=== PATIENT | female | born 1955 | race American Indian/Alaskan Native ===

== ENCOUNTER 2017-06-02 05:51 | Observation (INO) | payer MEDICARE ==
[2017-06-02 06:13] VITALS: O2SAT 98
--- NOTE | 2017-06-02 06:35 | ED PDOC ---
HPI: Chest Pain Time Seen by Provider: 06/02/17 06:13 Chief Complaint (Nursing): Chest Pain Chief Complaint (Provider): Chest Pain History Per: Patient History/Exam Limitations: no limitations Onset/Duration Of Symptoms: Hrs (x1 hour) Additional Complaint(s): 61 y/o female with past medical history of hypertension, renal failure and atrial fibrillation presents to the ED complaining of acute palpitations x1hour when she woke from sleep. Patient notes irregular heart beat and she felt the same when she was diagnosed with a-fib last month. Patient is compliant with her medications.Denies nausea, vomiting, diaphoresis or any further medical complaints. Past Medical History Vital Signs: Last Vital Signs Temp 98 F 06/02/17 09:39 Pulse 80 06/02/17 09:39 Resp 18 06/02/17 09:39 BP 120/78 06/02/17 09:39 Pulse Ox 98 06/02/17 09:39 - Medical History PMH: Atrial Fibrillation, HTN, End Stage Renal Disease, Chronic Kidney Disease - Family History Family History: States: Unknown Family Hx - Home Medications Home Medications: Ambulatory Orders Medication Instructions Recorded Apixaban [Eliquis] 5 mg PO BID 06/02/17 Atorvastatin [Lipitor] 40 mg PO DAILY 06/02/17 Famotidine [Pepcid] 20 mg PO DAILY 06/02/17 Magnesium Oxide [Mag-Ox] 400 mg PO BID 06/02/17 Mycophenolate Sodium [Mycophenolic 3 tab PO BID 06/02/17 Acid] Sulfamethoxazole/Trimethoprim 160 - 800 mg PO MWF 06/02/17 [Sulfamethoxazole-Tmp Ss Tablet] Tacrolimus [Prograf] 1 tab PO QPM 06/02/17 Tacrolimus [Prograf] 2 tab PO QAM 06/02/17 - Allergies Allergies/Adverse Reactions: Allergies Allergy/AdvReac Type Severity Reaction Status Date / Time allopurinol Allergy NAUSEA Verified 06/02/17 06:16 contrast dye Allergy RASH Uncoded 06/02/17 06:15 Review of Systems ROS Statement: Except As Marked, All Systems Reviewed And Found Negative (As per HPI, otherwise negative) Cardiovascular: Positive for: Palpitations Gastrointestinal: Negative for: Nausea, Vomiting Physical Exam - Reviewed Nursing Documentation Reviewed: Yes Vital Signs Reviewed: Yes - Physical Exam Appears: Positive for: Well, Non-toxic, No Acute Distress Head Exam: Positive for: ATRAUMATIC, NORMAL INSPECTION, NORMOCEPHALIC Skin: Positive for: Normal Color, Warm, Dry Eye Exam: Positive for: EOMI, Normal appearance, PERRL ENT: Positive for: Normal ENT Inspection Neck: Positive for: Normal, Painless ROM, Supple Cardiovascular/Chest: Positive for: Regular Rate, Rhythm. Negative for: Murmur Respiratory: Positive for: Normal Breath Sounds. Negative for: Accessory Muscle Use, Respiratory Distress Gastrointestinal/Abdominal: Positive for: Normal Exam, Bowel Sounds, Soft. Negative for: Tenderness Back: Positive for: Normal Inspection Extremity: Positive for: Normal ROM. Negative for: Deformity Neurologic/Psych: Positive for: Alert, Oriented (x3) - Laboratory Results Result Diagrams: 06/02/17 06:41 06/02/17 06:41 - ECG O2 Sat by Pulse Oximetry: 98 (RA) Pulse Ox Interpretation: Normal Medical Decision Making Medical Decision Making: Time: 06:13 Initial Impression: 61 y/o female with palpitations in setting of A-fib Plan: EKG CMP Troponin I CBC w/ differential PTT Prothrombin Time Heplock insertion Reevaluation Time: 07:00 Patient is signed out to Dr. Coronado pending labs and reevaluation. Scribe Attestation: Documented by Bhaskar Arias acting as a scribe for Andriy Fulton MD. Scribe Attestation: All medical record entries made by the Scribe were at my direction and personally dictated by me. I have reviewed the chart and agree that the record accurately reflects my personal performance of the history, physical exam, medical decision making, and the department course for this patient. I have also personally directed, reviewed, and agree with the discharge instructions and disposition. Disposition - Clinical Impression Clinical Impression: Chest pain - Disposition Disposition: Transfer of Care Disposition Time: 07:00 Condition: FAIR Patient Signed Over To: Mayank Coronado
[2017-06-02 06:52] LABS: BASO # 0.1 K/uL (0.0-0.2); BASO % 1.2 % (0.0-2.0); EOS # 0.1 K/uL (0.0-0.7); EOS % 1.8 % (0.0-4.0); LYMPH # 1.1 K/uL (1.0-4.3); LYMPH % 17.5 % (20.0-40.0); MEAN CELL VOLUME 94.7 fl (81.0-99.0); MEAN CORPUSCULAR HEMOGLOBIN 31.6 pg (27.0-31.0); MEAN CORPUSCULAR HGB CONC 33.3 g/dL (33.0-37.0); MEAN PLATELET VOLUME 8.8 fl (7.2-11.7); MONO # 0.7 K/uL (0.0-0.8); MONO % 11.2 % (0.0-10.0); NEUT # 4.4 K/uL (1.8-7.0); NEUT % 68.3 % (50.0-75.0); NRBC % 0.1 % (0.0-0.0); RBC 3.81 Mil/uL (3.80-5.20); RED CELL DISTRIBUTION WIDTH 14.2 % (11.5-14.5); WHITE BLOOD COUNT 6.4 K/uL (4.8-10.8)
[2017-06-02 06:57] LABS: PROTHROMBIN TIME 12.4 Seconds (9.8-13.1)
[2017-06-02 06:58] LABS: INR 1.1 (0.9-1.2); PARTIAL THROMBOPLASTIN TIME 25.6 Seconds (25.6-37.1)
--- NOTE | 2017-06-02 07:03 | ED PDOC ---
- Laboratory Results Result Diagrams: 06/02/17 06:41 06/02/17 06:41 - ECG O2 Sat by Pulse Oximetry: 98 (RA) Medical Decision Making Medical Decision Making: Time: 0700 --Patient was endorsed to provider by Dr. Andriy Fulton. Pending lab results and re-evaluation. Scribe Attestation: Documented by Trudy Barros, acting as a scribe for Mayank Coronado MD. Provider Scribe Attestation: All medical record entries made by the Scribe were at my direction and personally dictated by me. I have reviewed the chart and agree that the record accurately reflects my personal performance of the history, physical exam, medical decision making, and the department course for this patient. I have also personally directed, reviewed, and agree with the discharge instructions and disposition. Disposition - Clinical Impression Clinical Impression: Chest pain - POA Present On Arrival: None - Disposition Disposition: Hospitalized as Observation Patient Disposition Time: 07:35 Condition: FAIR Forms: [employer] ([place])
[2017-06-02 07:06] LABS: ALB/GLOB RATIO 1.2 (1.0-2.1); ALBUMIN 3.6 g/dL (3.5-5.0); ALT/SGPT 27 U/L (9-52); AST/SGOT 21 U/L (14-36); BLOOD UREA NITROGEN 7 mg/dl (7-17); CALCIUM 8.9 mg/dL (8.4-10.2); GFR AFRICAN-AMERICAN > 60; GFR NON-AFRICAN AMERICAN > 60
[2017-06-02] MEDS ORDERED: Potassium Chloride 20 mEq ER Tab PO ONE ×2 (07:32→09:30)
--- NOTE | 2017-06-02 09:05 | RAD ---
HISTORY: chest pain COMPARISON: No prior. TECHNIQUE: Chest PA and lateral FINDINGS: LUNGS: No active pulmonary disease. PLEURA: No significant pleural effusion identified. No pneumothorax apparent. CARDIOVASCULAR: Normal. OSSEOUS STRUCTURES: No significant abnormalities. VISUALIZED UPPER ABDOMEN: Normal. OTHER FINDINGS: None. IMPRESSION: No active disease.
[2017-06-02 09:40] VITALS: BP 120/78; PULSE 80; RESP 18; TEMP 98
--- NOTE | 2017-06-02 10:17 | CARD ---
APPROVED REPORT EKG Measurement Heart [id number] <Conclusion> Sinus rhythm with premature atrial complexes Minimal voltage criteria for LVH, may be normal variant Borderline ECG
== END 2017-06-02 09:40 | disposition home or self-care (01) ==
LOC: H.ER 05:51 → H.ERHOLD 07:34
PROVIDERS: ADMIT Family Medicine Geriatric Medicine; ATTEND Family Medicine Geriatric Medicine
DX: R07.9 Chest pain, unspecified (principal); I48.91 Unspecified atrial fibrillation; I12.0 Hypertensive chronic kidney disease with stage 5 chronic kidney disease or end stage renal disease; N18.6 End stage renal disease; Z79.01 Long term (current) use of anticoagulants; I49.9 Cardiac arrhythmia, unspecified
CPT/HCPCS: 71046; 80053; 84484; 85025; 85610; 85730; 93005; 99282; G0378

== ENCOUNTER 2018-04-22 05:38 | Emergency (ER) | payer MEDICARE ==
[2018-04-22 05:53] VITALS: PULSE 77
[2018-04-22 06:00] VITALS: BMI 30.9
--- NOTE | 2018-04-22 06:12 | ED PDOC ---
HPI: Chest Pain Time Seen by Provider: 04/22/18 06:09 Chief Complaint (Nursing): Chest Pain Chief Complaint (Provider): CHEST PAIN History Per: Patient (62 Y/O FEMALE H/[facility] 3 YEARS AGO HERE WITH COMPLAINT OF RIGHT SIDED CHEST PAIN THAT OCCURRED AFTER SLEEPING ON ONE SIDE LAST NIGHT. PATIENT NOTES PERSISTENT PAIN SINCE WORSENING WITH TAKING DEEP BREATH. PATIENT HAS H/O AFIB AND IS ON ELOQUIS. HAS H/O DVT DURING AND AFTER HAVING FLU (IN PAST). DENIES ANY COUGH/FEVERS/CHILLS.) Past Medical History Reviewed: Historical Data, Nursing Documentation, Vital Signs Vital Signs: Last Vital Signs Temp 98.5 F 04/22/18 05:52 Pulse 77 04/22/18 05:52 Resp 16 04/22/18 05:52 BP 149/86 04/22/18 05:52 Pulse Ox 98 04/22/18 05:52 - Medical History PMH: Atrial Fibrillation, HTN, End Stage Renal Disease, Chronic Kidney Disease - Family History Family History: States: Unknown Family Hx - Home Medications Home Medications: Ambulatory Orders Medication Instructions Recorded Apixaban [Eliquis] 5 mg PO BID 06/02/17 Atorvastatin [Lipitor] 40 mg PO DAILY 06/02/17 Famotidine [Pepcid] 20 mg PO DAILY 06/02/17 Magnesium Oxide [Mag-Ox] 400 mg PO BID 06/02/17 Mycophenolate Sodium [Mycophenolic 3 tab PO BID 06/02/17 Acid] Sulfamethoxazole/Trimethoprim 160 - 800 mg PO MWF 06/02/17 [Sulfamethoxazole-Tmp Ss Tablet] Tacrolimus [Prograf] 1 tab PO QPM 06/02/17 Tacrolimus [Prograf] 2 tab PO QAM 06/02/17 - Allergies Allergies/Adverse Reactions: Allergies Allergy/AdvReac Type Severity Reaction Status Date / Time allopurinol Allergy NAUSEA Verified 06/02/17 06:16 contrast dye Allergy RASH Uncoded 06/02/17 06:15 Review of Systems ROS Statement: Except As Marked, All Systems Reviewed And Found Negative Cardiovascular: Positive for: Chest Pain Physical Exam - Reviewed Nursing Documentation Reviewed: Yes Vital Signs Reviewed: Yes - Physical Exam Appears: Positive for: Well, Non-toxic, No Acute Distress Head Exam: Positive for: ATRAUMATIC, NORMAL INSPECTION, NORMOCEPHALIC Skin: Positive for: Normal Color, Warm, DRY Eye Exam: Positive for: EOMI, Normal appearance, PERRL ENT: Positive for: Normal ENT Inspection Neck: Positive for: Normal, Painless ROM Cardiovascular/Chest: Positive for: Regular Rate, Rhythm, Chest Non Tender Respiratory: Positive for: CNT, Normal Breath Sounds Gastrointestinal/Abdominal: Positive for: Normal Exam, Soft Back: Positive for: Normal Inspection Extremity: Positive for: Normal ROM Neurologic/Psych: Positive for: Alert, Oriented - ECG ECG Rhythm: Positive for: Sinus Rhythm (NO ECTOPY; ARTIFACT V4-V6P; NO ACUTE CHANGES) O2 Sat by Pulse Oximetry: 98 Disposition - Clinical Impression Clinical Impression: Acute chest pain - Patient ED Disposition Is Patient to be Admitted: Transfer of Care - Disposition Disposition: Transfer of Care Disposition Time: 06:30 Condition: FAIR Patient Signed Over To: Heri Liao Y Handoff Comments: LABS/CXR/CTA R/O PE
--- NOTE | 2018-04-22 06:22 | ED PDOC ---
- Laboratory Results Result Diagrams: 04/22/18 08:00 04/22/18 09:26 - ECG O2 Sat by Pulse Oximetry: 98 (RA) Pulse Ox Interpretation: Normal Medical Decision Making Medical Decision Making: Time: 06:00 Patient care endorsed from Kimber Arias to provider pending labs, x-ray and CTA Chest. Time: 07:00 Patient care endorsed to Dr. Coto pending labs, x-ray, and CTA Chest Scribe Attestation: Documented by Lv Keita, acting as a scribe for Heri Liao MD. Provider Scribe Attestation: All medical record entries made by the Scribe were at my direction and personally dictated by me. I have reviewed the chart and agree that the record accurately reflects my personal performance of the history, physical exam, medical decision making, and the department course for this patient. I have also personally directed, reviewed, and agree with the discharge instructions and disposition. Disposition - Clinical Impression Clinical Impression: Right-sided chest pain, Anemia - POA Present On Arrival: None - Disposition Referrals: [facility] [Outside] Disposition: Transfer of Care Disposition Time: 07:00 Condition: STABLE Prescriptions: Acetaminophen with Codeine [Tylenol with Codeine No. 3 300 mg-30 mg] 1 tab PO Q6H PRN #10 tab PRN Reason: Pain, Severe (8-10) Instructions: Anemia of Chronic Disease, Chest Pain Forms: [employer] ([place]) Patient Signed Over To: Kaylynn Coto
--- NOTE | 2018-04-22 07:46 | ED PDOC ---
- Laboratory Results Result Diagrams: 04/22/18 08:00 04/22/18 09:26 - ECG O2 Sat by Pulse Oximetry: 98 (RA) Pulse Ox Interpretation: Normal - Radiology X-Ray: Read By Radiologist X-Ray Interpretation: No Acute Disease Medical Decision Making Medical Decision Makin:00 --Patient transferred to this provider by Dr. Liao pending CTA chest, CXR, labs and reevaluation. 14:28 CTA Chest FINDINGS: PULMONARY ARTERIES: There are no filling defects in the pulmonary arteries to suggest acute pulmonary embolism. AORTA: No acute findings. No thoracic aortic aneurysm. No aortic atherosclerotic calcification or mural plaque present. LUNGS: The lungs are well inflated. There is mild subsegmental atelectasis in the lung bases, worse on the right. No nodule, mass or pulmonary consolidation. PLEURAL SPACES: Trace pleural effusions, worse on the right. No pneumothorax. HEART: Mild cardiomegaly. Trace pericardial effusion. LYMPH NODES: No pathologic mediastinal or hilar lymphadenopathy. BONES, CHEST WALL: Within normal limits for the patient's age. No fracture or destructive lesion OTHER FINDINGS: There is a multinodular thyroid gland. Bilateral renal cortical atrophy and incompletely imaged cortical cysts in the kidneys. Postsurgical changes in the stomach. Status post cholecystectomy. There is a small sliding hiatal hernia. IMPRESSION: No CTA evidence for acute pulmonary embolism. Subsegmental atelectasis in the lung bases, worse on the right. Trace effusions, worse on the right. Mild cardiomegaly and trace pericardial effusion. 13:35 Pt reevaluated, states R chest pain, worse with movement and deep breaths. Copy of labs and imaging given to patient. Scribe Attestation: Documented by Rosa Maria León acting as a scribe for Kaylynn Coto MD Provider Scribe Attestation: All medical record entries made by the Scribe were at my direction and personally dictated by me. I have reviewed the chart and agree that the record accurately reflects my personal performance of the history, physical exam, medical decision making, and the department course for this patient. I have also personally directed, reviewed, and agree with the discharge instructions and disposition. Disposition - Clinical Impression Clinical Impression: Right-sided chest pain, Anemia - POA Present On Arrival: None - Disposition Referrals: [facility] [Outside] Disposition: Routine/Home Disposition Time: 14:36 Condition: STABLE Prescriptions: Acetaminophen with Codeine [Tylenol with Codeine No. 3 300 mg-30 mg] 1 tab PO Q6H PRN #10 tab PRN Reason: Pain, Severe (8-10) Instructions: Anemia of Chronic Disease, Chest Pain Forms: [employer] ([place])
[2018-04-22 08:24] LABS: BASO % 0.8 % (0.0-2.0); EOS % 0.9 % (0.0-4.0); HEMOGLOBIN 9.4 g/dL (12.0-16.0); LYMPH # 0.8 K/uL (1.0-4.3); LYMPH % 21.1 % (20.0-40.0); MEAN CORPUSCULAR HEMOGLOBIN 31.6 pg (27.0-31.0); MEAN CORPUSCULAR HGB CONC 32.6 g/dL (33.0-37.0); MEAN PLATELET VOLUME 9.2 fl (7.2-11.7); MONO # 0.3 K/uL (0.0-0.8); MONO % 6.9 % (0.0-10.0); NEUT # 2.8 K/uL (1.8-7.0); NEUT % 70.3 % (50.0-75.0); NRBC % 0.2 % (0.0-0.0); RBC 2.99 Mil/uL (3.80-5.20); RED CELL DISTRIBUTION WIDTH 13.9 % (11.5-14.5); WHITE BLOOD COUNT 3.9 K/uL (4.8-10.8)
[2018-04-22 08:33] LABS: INR 1.3; PROTHROMBIN TIME 14.4 Seconds (9.8-13.1)
[2018-04-22 08:36] LABS: PARTIAL THROMBOPLASTIN TIME 34.4 Seconds (25.6-37.1)
[2018-04-22 08:53] LABS: D DIMER < 200 ng/mlDDU (0-230)
--- NOTE | 2018-04-22 08:58 | RAD ---
Date of service: 04/22/2018 HISTORY: ROUTINE COMPARISON: 06/02/2017. FINDINGS: LUNGS: The lungs are well inflated and clear. There is linear atelectasis/scarring in the right lower lobe. PLEURA: No pleural effusions or pneumothorax. CARDIOVASCULAR: The heart is normal in size. There are aortic atherosclerotic calcification present. OSSEOUS STRUCTURES: Within normal limits for the patient's age. VISUALIZED UPPER ABDOMEN: Normal. OTHER FINDINGS: Surgical clips in the right upper quadrant are related to prior cholecystectomy. There is chronic elevation of the right hemithorax. IMPRESSION: No active pulmonary disease.
[2018-04-22 09:44] LABS: ALB/GLOB RATIO 1.3 (1.0-2.1); ALBUMIN 3.9 g/dL (3.5-5.0); ALT/SGPT 24 U/L (9-52); AST/SGOT 19 U/L (14-36); BLOOD UREA NITROGEN 11 mg/dl (7-17); CALCIUM 9.4 mg/dL (8.4-10.2); GFR NON-AFRICAN AMERICAN > 60
[2018-04-22] MEDS ORDERED: Potassium Chloride 20 mEq ER Tab PO STA (10:12)
[2018-04-22] MEDS ORDERED: DiphenhydrAMINE 50 mg/ml Inj IVP STA (11:09)
[2018-04-22] MEDS ORDERED: Potassium Chloride 20 mEq ER Tab PO ONE (13:13)
[2018-04-22] MEDS ORDERED: DiphenhydrAMINE 50 mg/ml Inj ONE (13:14)
[2018-04-22] MEDS ORDERED: Sodium Chloride 0.9% 50 ML IV ONE (13:27)
[2018-04-22] MEDS ORDERED: Iodixanol 320 MG/ML 100 ML BOTTLE IV ONE (13:27)
--- NOTE | 2018-04-22 14:25 | CT ---
Date of service: 04/22/2018 PROCEDURE: CT Chest with contrast (Pulmonary Angiogram) HISTORY: R/O PE COMPARISON: Chest radiograph performed earlier the same day. TECHNIQUE: Axial computed tomography images were obtained of the chest in the pulmonary arterial phase of enhancement. Coronal and sagittal reformatted images were created and reviewed. Intravenous contrast dose: Radiation dose: Total exam DLP = 356.96 mGy-cm. This CT exam was performed using one or more of the following dose reduction techniques: Automated exposure control, adjustment of the mA and/or kV according to patient size, and/or use of iterative reconstruction technique. FINDINGS: PULMONARY ARTERIES: There are no filling defects in the pulmonary arteries to suggest acute pulmonary embolism. AORTA: No acute findings. No thoracic aortic aneurysm. No aortic atherosclerotic calcification or mural plaque present. LUNGS: The lungs are well inflated. There is mild subsegmental atelectasis in the lung bases, worse on the right. No nodule, mass or pulmonary consolidation. PLEURAL SPACES: Trace pleural effusions, worse on the right. No pneumothorax. HEART: Mild cardiomegaly. Trace pericardial effusion. LYMPH NODES: No pathologic mediastinal or hilar lymphadenopathy. BONES, CHEST WALL: Within normal limits for the patient's age. No fracture or destructive lesion OTHER FINDINGS: There is a multinodular thyroid gland. Bilateral renal cortical atrophy and incompletely imaged cortical cysts in the kidneys. Postsurgical changes in the stomach. Status post cholecystectomy. There is a small sliding hiatal hernia. IMPRESSION: No CTA evidence for acute pulmonary embolism. Subsegmental atelectasis in the lung bases, worse on the right. Trace effusions, worse on the right. Mild cardiomegaly and trace pericardial effusion.
[2018-04-22 15:04] VITALS: BP 141/74; RESP 18; TEMP 97.8
[2018-04-24 10:16] VITALS: O2SAT 98
== END 2018-04-22 15:26 | disposition home or self-care (01) ==
LOC: H.ER 05:38
DX: R07.9 Chest pain, unspecified (principal); D64.9 Anemia, unspecified; I12.0 Hypertensive chronic kidney disease with stage 5 chronic kidney disease or end stage renal disease; N18.6 End stage renal disease; Z79.01 Long term (current) use of anticoagulants; Z86.718 Personal history of other venous thrombosis and embolism; Z94.0 Kidney transplant status
CPT/HCPCS: 71045; 71275; 80053; 80197; 83735; 84100; 84484; 85025; 85378; 85610; 85730; 96374; 96375; 99285; J1200; J2930; Q9967